=== PATIENT | male | born 1980 | race Caucasian/White ===

== ENCOUNTER 2017-11-22 22:33 | Emergency (ER) | payer OTHER ==
[~2017-11-22] VITALS: Ht 170.2 cm; Wt 77.1 kg
[2017-11-22 22:51] LABS: HEMATOCRIT 44.5 % (38.0-50.0); HEMOGLOBIN 15.2 G/DL (12.5-16.6); MCH 31.7 PG (29.0-34.0); MCHC 34.2 G/DL (30.0-36.0); MCV 92.9 FL (86-99); PLATELET COUNT 187 K/uL (156-360); RBC DIS.WIDTH-CV 13.3 % (11.8-14.6); RBC DIS.WIDTH-SD 45.7 % (39-53); RED BLOOD COUNT 4.79 M/uL (4.00-5.50); WHITE BLOOD COUNT 9.3 K/uL (4.1-10.2)
[2017-11-22 23:00] LABS: CHLORIDE 105 mEq/L (99-109); POTASSIUM 3.9 mEq/L (3.7-5.4); SODIUM 141 mEq/L (136-147)
[2017-11-22 23:01] LABS: GLUCOSE 88 mg/dL (70-99)
[2017-11-22 23:05] LABS: CREATININE 0.9 mg/dL (0.6-1.3); GFR ESTIMATE (CALCULATED) > 59 mL/min/ (58.99-99999)
[2017-11-22 23:06] LABS: UREA NITROGEN (BUN) 10 mg/dL (9-23)
[2017-11-22 23:12] LABS: TROP-I INTERPRETATION NEGATIVE; TROPONIN-I < 0.01 ng/mL (0.0-0.30)
[2017-11-23] MEDS ORDERED: PREDNISONE50 MG PO (00:07)
[2017-11-23] MEDS ORDERED: TESSALON PERLE100 MG PO (00:07)
[2017-11-23] MEDS ORDERED: PROVENTIL HFA6.7 GM IH (00:07)
[2017-11-23 00:56] VITALS: BP 133/84
== END 2017-11-23 00:58 | disposition home or self-care (01) ==
LOC: EME 22:33
DX: J40 Bronchitis, not specified as acute or chronic (principal); J06.9 Acute upper respiratory infection, unspecified; R94.31 Abnormal electrocardiogram [ECG] [EKG]; F17.210 Nicotine dependence, cigarettes, uncomplicated
CPT/HCPCS: 71046; 80048; 84484; 85027; 93005; 94640; 99281; 99284; J7512